=== PATIENT | male | born 1990 | race Caucasian/White ===

== ENCOUNTER 2024-12-05 09:55 | Emergency (ER) | payer OTHER, SELFPAY ==
[2024-12-05 10:06] VITALS: BP 161/84; PULSE 75; RESP 16; TEMP 36.6; O2SAT 97
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
[2024-12-05] MEDS: Diph,Pertuss(Acell),Tet Vac/Pf 0.5 ML SYR IM (10:21)
== END 2024-12-05 10:34 | disposition home or self-care (01) ==
LOC: ER 10:39
PROVIDERS: Emergency Provider Physician Assistant
DX: T22.00XA Burn of unspecified degree of shoulder and upper limb, except wrist and hand, unspecified site, initial encounter (principal); L03.113 Cellulitis of right upper limb; Z23 Encounter for immunization; X17.XXXA Contact with hot engines, machinery and tools, initial encounter
CPT/HCPCS: 99283; 99284; 90471; 90715